=== PATIENT | female | born 1995 | race Two or more races ===

== ENCOUNTER 2021-12-13 03:59 | Emergency (ER) | payer BC ==
[~2021-12-13] VITALS: Ht 167.6 cm; Wt 76.4 kg
[2021-12-13 06:00] VITALS: BP 116/87
[2021-12-13] MEDS ORDERED: VIRE MT (06:10)
[2021-12-13] MEDS ORDERED: RALT400T MT (06:10)
[2021-12-13] MEDS ORDERED: EMTR200C3 MT (06:10)
[2021-12-13 06:13] LABS: HEPATITIS B SURFACE ANTIGEN NEGATIVE
[2021-12-13] MEDS ORDERED: EMTRICITABINE 200MG CAPSULE PO ONE (06:15)
[2021-12-13] MEDS ORDERED: RALTEGRAVIR 400MG TABLET PO ONE (06:15)
[2021-12-13] MEDS ORDERED: TENOFOVIR 300MG TABLET PO ONE (06:15)
[2021-12-13 06:19] LABS: CHLORIDE 108 mEq/L (98-107)
[2021-12-13 06:25] LABS: HEPATITIS B SURFACE AB > 1000.0 mIU/mL
[2021-12-13 06:29] LABS: BASOPHILS % 0.5 % (0.0-2.0); EOSINOPHILS % 0.3 % (0.0-5.0); HEMATOCRIT. 36.6 % (36.0-48.0); HEMOGLOBIN. 12.1 g/dL (12.0-16.0); LYMPHOCYTES % 26.5 % (20.0-50.0); MEAN CORPUSCULAR HEMOGLOBIN 28.4 pg (28.0-32.0); MEAN CORPUSCULAR VOLUME 85.9 fL (81.0-99.0); MONOCYTES % 10.6 % (2.0-8.0); NEUTROPHILS % 62.1 % (40.0-76.0); PLATELET 447 x1000/uL (130-400); RED BLOOD CELL COUNT 4.26 mill/uL (4.2-5.4); RED CELL DISTRIBUTION WIDTH 15.1 % (11.6-14.6)
[2021-12-14 08:07] LABS: HIV SCREEN 4G Non Reactive (Non Reactive)
== END 2021-12-13 06:30 | disposition home or self-care (01) ==
LOC: ER 03:59
DX: S69.82XA Other specified injuries of left wrist, hand and finger(s), initial encounter (principal); X58.XXXA Exposure to other specified factors, initial encounter; Y93.89 Activity, other specified; Y92.89 Other specified places as the place of occurrence of the external cause; Y99.8 Other external cause status
CPT/HCPCS: 36415; 80053; 85025; 86706; 87389; 99284